=== PATIENT | female | born 1955 | race Caucasian/White ===

== ENCOUNTER 2017-04-19 13:30 | Emergency (ER) | payer OTHER ==
[2017-04-19 13:57] VITALS: BP 133/54
--- NOTE | 2017-04-19 14:31 | UC ---
Lower Extremity/Ankle HPI - HPI Summary HPI Summary: Pt presents with left great toe pain. She tells me that last night she was getting out kelly supplies, lost her vest finisher, and dropped a glass platter onto her left great toe. Had immediate pain and swelling. She iced and soaked the toe in cold water and took ibuprofen for pain with mild relief. She denies previous injury, fever, chills, or loss of sensation. - History of Current Complaint Chief Complaint: UCLowerExtremity Stated Complaint: FOOT INJURY Time Seen by Provider: 04/19/17 14:30 Hx Obtained From: Patient ?: No Onset/Duration: Sudden Onset Severity Initially: Severe Severity Currently: Severe Pain Intensity: 9 Pain Scale Used: 0-10 Numeric Aggravating Factor(s): Standing, Ambulation Alleviating Factor(s): Rest, Elevation, Ice Able to Bear Weight: Yes - With pain - Allergies/Home Medications Allergies/Adverse Reactions: Allergies Allergy/AdvReac Type Severity Reaction Status Date / Time No Known Allergies Allergy Verified 04/19/17 13:57 Home Medications: Home Medications Calcium Carbonate (Antacid) [Tums] 1,000 mg PO 04/19/17 [History] PMH/Surg Hx/FS Hx/Imm Hx Previously Healthy: Yes Cancer History: Breast Cancer - Surgical History Surgical History: Yes Surgery Procedure, Year, and Place: breast ca - Family History Known Family History: Positive: Unknown - Social History Occupation: Employed Full-time Lives: With Family Alcohol Use: Rare Substance Use Type: None Smoking Status (MU): Never Smoked Tobacco Review of Systems Constitutional: Negative Skin: Bruising - Left great toe Respiratory: Negative Cardiovascular: Negative Neurovascular: Negative Musculoskeletal: Edema - Left great toe, Other: - Left great toe pain Neurological: Negative Psychological: Negative All Other Systems Reviewed And Are Negative: Yes Physical Exam Triage Information Reviewed: Yes Appearance: Well-Appearing, Well-Nourished Vital Signs: Initial Vital Signs Temp 97.8 F 04/19/17 13:51 Pulse 67 04/19/17 13:51 Resp 18 04/19/17 13:51 BP 133/54 04/19/17 13:51 Pulse Ox 99 04/19/17 13:51 Vital Signs Reviewed: Yes Respiratory: Positive: Chest non-tender, Lungs clear, Normal breath sounds, No respiratory distress, No accessory muscle use Cardiovascular: Positive: RRR, No Murmur, Pulses Normal Musculoskeletal: Positive: ROM Intact - Left great toe, Edema @ - Left great toe , Other: - Left great toe: She is able to flex the toe, but with significant pain. TTP over the IP joint space. Neurological: Positive: Alert, Other: - Sensations intact left great toe and all digits. Psychological: Positive: Age Appropriate Behavior Skin: Positive: Other - Left great toe: There is extensive ecchymosis on the dorsal aspect of the toe, just below the nail and above the IP joint. There is no pallor, necrotic tissue, or open wounds. The nail is intact, but with moderate subungual hematoma. Lower Extremity Course/Dx - Course Course Of Treatment: Foot/Toe XR IMPRESSION: 1. NONDISPLACED FRACTURE OF THE DISTAL PHALANX OF THE FIRST DIGIT. 2. OSTEOARTHRITIS. I offered a digital block and/or nail trephination for pain/swelling relief - pt declined and would like to stick with ice and po medication. Single dose of Smith in clinic today. Rx for norco at home. Shreyas tape the toe and wrap in a padded kerlix dressing. Advised to Rest, Ice, and elevate the foot as much as possible. Follow up with orthopedics within 1 week. - Differential Dx/Diagnosis Differential Diagnosis/HQI/PQRI: Contusion, Dislocation, Fracture (Closed), Subungual Hematoma, Sprain, Strain Provider Diagnoses: NONDISPLACED FRACTURE OF THE DISTAL PHALANX OF THE FIRST DIGIT. Left foot. Discharge - Discharge Plan Condition: Stable Disposition: HOME Prescriptions: HYDROcodone/ACETAMIN 5-325 MG* [Smith 5-325 TAB*] 1 tab PO Q8H PRN #12 tab MDD 3 PRN Reason: Pain Patient Education Materials: Toe Fracture (ED) Referrals: David Reaves MD [Primary Care Provider] - Niko Treadwell MD [Medical Doctor] - As Soon As Possible Additional Instructions: If you develop a fever, SOB, chest pain, new or worsening symptoms - please call your PCP or go to the ED. 1) Keep the toe shreyas-taped and dressing clean, dry, and intact. 2) Please call the number below to schedule a follow up appointment with Orthopedics within 1 week. 3) Rest, Ice, and elevate your toe for the next 48-72hours. 4) Monitor the toe for abnormal color changes such as black colors, white or pale coloration above the area of injury, or loss of sensation. If you develop any of these symptoms please go to the ED.
--- NOTE | 2017-04-19 14:32 | RAD ---
HISTORY: Pain, trauma, left great toe COMPARISONS: None VIEWS: 6, Frontal, lateral, and oblique views of the left foot and of the first digit of the left foot FINDINGS: BONE DENSITY: Normal. BONES: There is a nondisplaced fracture of the distal phalanx of the first digit. JOINTS: There is osteoarthritis of the first MTP joint ALIGNMENT: There is no dislocation. SOFT TISSUES: Unremarkable. OTHER FINDINGS: None. IMPRESSION: 1. NONDISPLACED FRACTURE OF THE DISTAL PHALANX OF THE FIRST DIGIT. 2. OSTEOARTHRITIS.
[2017-04-19] MEDS ORDERED: HYDROcodone/ACETAMIN 5-325 MG* 1 TAB PO ONE (14:46)
== END 2017-04-19 15:15 | disposition home or self-care (01) ==
LOC: UCEAST 13:30
DX: S92.425A Nondisplaced fracture of distal phalanx of left great toe, initial encounter for closed fracture (principal); M19.072 Primary osteoarthritis, left ankle and foot; W20.8XXA Other cause of strike by thrown, projected or falling object, initial encounter; Y92.9 Unspecified place or not applicable; Z85.3 Personal history of malignant neoplasm of breast
CPT/HCPCS: 99212; G0463

== ENCOUNTER 2017-06-11 13:29 | Emergency (ER) | payer OTHER ==
[2017-06-11 13:48] VITALS: BP 129/65
--- NOTE | 2017-06-11 15:13 | UC ---
FLU HPI - HPI Summary HPI Summary: cough fever, chills, body aches, fatigue-- - History of Current Complaint Chief Complaint: UCRespiratory Stated Complaint: FLU SYMPTOMS Time Seen by Provider: 06/11/17 15:11 Hx Obtained From: Patient ?: No Onset/Duration: Sudden Onset, Lasting Days - 2 Severity Currently: Moderate Severity Initially: Moderate Pain Intensity: 0 Associated Signs & Symptoms: Positive: Fever, Myalgia, Cough, Nasal Congestion, Headache Related Hx: Possible Flu/Infectious Exposure - Allergy/Home Medications Allergies/Adverse Reactions: Allergies Allergy/AdvReac Type Severity Reaction Status Date / Time No Known Allergies Allergy Verified 06/11/17 13:49 PMH/Surg Hx/FS Hx/Imm Hx Previously Healthy: No Cancer History: Breast Cancer - Surgical History Surgical History: Yes Surgery Procedure, Year, and Place: breast ca - Family History Known Family History: Positive: Unknown - Social History Occupation: Employed Full-time Lives: With Family Alcohol Use: Rare Substance Use Type: None Smoking Status (MU): Never Smoked Tobacco Review of Systems Constitutional: Fever, Chills, Fatigue Skin: Negative Eyes: Negative ENT: Sore Throat, Nasal Discharge Respiratory: Cough Cardiovascular: Negative Gastrointestinal: Negative Genitourinary: Negative Motor: Negative Neurovascular: Negative Musculoskeletal: Arthralgia, Myalgia Neurological: Headache Psychological: Negative Is Patient Immunocompromised?: No All Other Systems Reviewed And Are Negative: Yes Physical Exam Triage Information Reviewed: Yes Appearance: Well-Nourished, Ill-Appearing - mild, Pain Distress - mild Vital Signs: Initial Vital Signs Temp 98.3 F 06/11/17 13:44 Pulse 80 06/11/17 13:44 Resp 18 06/11/17 13:44 BP 129/65 06/11/17 13:44 Pulse Ox 98 06/11/17 13:44 Vital Signs Reviewed: Yes Eye Exam: Normal Eyes: Positive: Conjunctiva Clear ENT Exam: Normal ENT: Positive: Normal ENT inspection, Hearing grossly normal, Pharynx normal, Nasal congestion, TMs normal, Uvula midline. Negative: Nasal drainage, Tonsillar swelling, Tonsillar exudate, Trismus, Muffled voice, Hoarse voice, Dental tenderness, Sinus tenderness Dental Exam: Normal Neck exam: Normal Neck: Positive: Supple, Nontender, No Lymphadenopathy Respiratory Exam: Normal Respiratory: Positive: Chest non-tender, Lungs clear, Normal breath sounds, No respiratory distress, No accessory muscle use Cardiovascular Exam: Normal Cardiovascular: Positive: RRR, No Murmur, Pulses Normal, Brisk Capillary Refill Musculoskeletal Exam: Normal Musculoskeletal: Positive: Strength Intact, ROM Intact, No Edema Neurological Exam: Normal Neurological: Positive: Alert, Muscle Tone Normal Psychological Exam: Normal Skin Exam: Normal Diagnostics - Laboratory Diagnostic Studies Completed/Ordered: Influenza A/B (-) Flu Course/Dx - Course Course Of Treatment: will treat clinically and based on Exposures at [place] -- Pt is agreeable to plan follow with pcp prn - Differential Dx/Diagnosis Provider Diagnoses: Influenza Like Illness Discharge - Discharge Plan Condition: Stable Disposition: HOME Prescriptions: Oseltamivir Phosphate [Tamiflu] 75 mg PO BID #10 cap Patient Education Materials: Viral Syndrome (ED) Referrals: David Reaves MD [Primary Care Provider] - 3 Days Additional Instructions: To ED should Symptoms worsen in any way
== END 2017-06-11 15:55 | disposition home or self-care (01) ==
LOC: UCEAST 13:29
DX: J11.1 Influenza due to unidentified influenza virus with other respiratory manifestations (principal)
CPT/HCPCS: 87502; 99212; G0463

== ENCOUNTER 2018-12-10 08:50 | Emergency (ER) | payer OTHER ==
--- NOTE | 2018-12-10 09:27 | ED ---
Lower Extremity - HPI Summary HPI Summary: This patient is a 63-year-old otherwise healthy female presenting to the ED with left lower extremity discomfort. She is also endorsing swelling to the area. She denies any long trips or flights, denies OCP use or smoking history, denies any known clotting disorder, malignancy or smoking history. She denies any injury to the left lower extremity. Symptoms started occurring 2 days ago and have remained constant. She remains ambulatory but with discomfort. Symptoms are improved with rest and worse with ambulation, however remains despite rest. She does have a history of Remy's cyst bilaterally, however these have never bothered her in the past. She is not taken any medication prior to arrival. - History of Current Complaint Chief Complaint: EDExtremityLower Stated Complaint: POSS BLOOD CLOT IN LEFT LEG PER PT Time Seen by Provider: 12/10/18 08:55 Hx Obtained From: Patient Mechanism Of Injury: Unknown Onset/Duration: Days - 3 days Severity Initially: Moderate Severity Currently: Moderate Pain Intensity: 8 Pain Scale Used: 0-10 Numeric Location: Is Discrete @ - left lower extremity from just BTK Character Of Pain: Aching Associated Signs And Symptoms: Positive: Swelling. Negative: Redness, Bruising Aggravating Factor(s): Standing, Ambulation Alleviating Factor(s): Rest Able to Bear Weight: Yes - Risk Factors Gout Risk Factors: Age Over 40 DVT Risk Factors: Negative Septic Arthritis Risk Factor: Negative - Allergies/Home Medications Allergies/Adverse Reactions: Allergies Allergy/AdvReac Type Severity Reaction Status Date / Time No Known Allergies Allergy Verified 06/11/17 13:49 PMH/Surg Hx/FS Hx/Imm Hx Previously Healthy: Yes - Cancer History Cancer Type, Location and Year: breast Hx Chemotherapy: No Hx Radiation Therapy: No - Surgical History Surgery Procedure, Year, and Place: breast ca - Immunization History Hx Pertussis Vaccination: No Immunizations Up to Date: Yes Infectious Disease History: No Infectious Disease History: Denies: Traveled Outside the [place] in Last 30 Days - Family History Known Family History: Positive: Unknown - Social History Occupation: Employed Full-time Lives: With Family Alcohol Use: Rare Hx Substance Use: No Substance Use Type: Reports: None Smoking Status (MU): Never Smoked Tobacco Review of Systems Constitutional: Negative Negative: Fever, Chills, Fatigue, Skin Diaphoresis Negative: Palpitations, Chest Pain Negative: Shortness Of Breath, Cough Genitourinary: Negative Positive: no symptoms reported, see HPI Positive: Other - left lower extremity swelling without pitting edema. Negative : Arthralgia, Myalgia Positive: Other Neurological: Negative All Other Systems Reviewed And Are Negative: Yes Physical Exam Triage Information Reviewed: Yes Vital Signs On Initial Exam: Initial Vitals Temp Pulse Resp BP Pulse Ox 98.0 F 79 15 152/74 94 12/10/18 08:51 12/10/18 08:51 12/10/18 08:51 12/10/18 08:51 12/10/18 08:51 Vital Signs Reviewed: Yes Appearance: Positive: Well-Appearing, Well-Nourished Skin: Positive: Warm, Skin Color Reflects Adequate Perfusion Head/Face: Positive: Normal Head/Face Inspection Eyes: Positive: EOMI, LELAND, Conjunctiva Clear Neck: Positive: Supple, No Lymphadenopathy Respiratory/Lung Sounds: Positive: Clear to Auscultation, Breath Sounds Present Cardiovascular: Positive: RRR, Pulses are Symmetrical in both Upper and Lower Extremities Musculoskeletal: Positive: Normal, Strength/ROM Intact, Edema Left, Other. Negative: Leland Sign Left, Leland Sign Right, Edema Right Neurological: Positive: Speech Normal Psychiatric: Positive: Affect/Mood Appropriate AVPU Assessment: Alert Diagnostics - Vital Signs Vital Signs Temp Pulse Resp BP Pulse Ox 12/10/18 08:51 98.0 F 79 15 152/74 94 - Laboratory Lab Statement: Any lab studies that have been ordered have been reviewed, and results considered in the medical decision making process. Lower Extremity Course/Dx - Course Course Of Treatment: During his course of treatment, the patient is evaluated for left lower extremity pain and swelling. On physical examination, the left lower extremity does appear to be more swollen than the right, however no pitting edema is noted. Patient has no history of CAD or CHF. No history of clotting disorder, known malignancy, smoking history or other risk factors for DVT. Plantar flexion and dorsi flexion intact without discomfort. No palpable cord. Negative Homans sign. No evidence of a Remy's cyst on physical examination. DVT US obtained which shows a left lower extremity DVT. No evidence of bakers cyst. Patient is started on Xarelto 15mg x 21 days. She will follow-up with her PCP within this 3 week time frame. - Diagnoses Differential Diagnosis/HQI/PQRI: Positive: DVT Provider Diagnoses: DVT (deep venous thrombosis) Discharge - Sign-Out/Discharge Documenting (check all that apply): Patient Departure Patient Received Moderate/Deep Sedation with Procedure: No - Discharge Plan Condition: Stable Disposition: HOME Prescriptions: Rivaroxaban TAB(*) [Xarelto 15 mg(*)] 15 mg PO BID #41 tab MDD 2 Patient Education Materials: Rivaroxaban (By mouth), Deep Vein Thrombosis (ED) Referrals: David Reaves MD [Primary Care Provider] - 2 Days Additional Instructions: Xarelto twice daily x 21 days or until follow up with your PCP - Billing Disposition and Condition Condition: STABLE Disposition: Home
[2018-12-10] MEDS ORDERED: Rivaroxaban TAB(*) 15 MG PO ONE (10:22)
[2018-12-10 10:40] VITALS: BP 150/75
[2018-12-10 10:55] LABS: Albumin 4.2 g/dL (3.2-5.2); Albumin/Globulin Ratio 1.5 (1-3); BUN/Creatinine Ratio 20.5 (8-20); Calcium 9.7 mg/dL (8.6-10.3); EGFR Non-African American 74.4 (>60); Globulin 2.8 g/dL (2-4); Potassium 4.2 mmol/L (3.5-5.0); Total Bilirubin 0.5 mg/dL (0.2-1.0)
== END 2018-12-10 10:32 | disposition home or self-care (01) ==
LOC: ED 08:50
DX: I82.432 Acute embolism and thrombosis of left popliteal vein (principal); I82.442 Acute embolism and thrombosis of left tibial vein; I82.412 Acute embolism and thrombosis of left femoral vein
CPT/HCPCS: 36415; 80053; 99282